=== PATIENT | female | born 1940 | race Caucasian/White ===

== ENCOUNTER → 2019-01-22 | Outpatient (CLI) | payer MEDICARE, OTHER | LOC: RAD 14:21 | DX: I08.1 Rheumatic disorders of both mitral and tricuspid valves (principal) ==

== ENCOUNTER 2020-06-18 09:01 | Inpatient (IN) | payer MEDICARE, OTHER ==
[~2020-06-18] VITALS: Ht 167.6 cm; Wt 50.0 kg
[2020-06-18] MEDS ORDERED: SUNMARK PAIN R325 MG PO (10:21)
[2020-06-18] MEDS ORDERED: ASPIRIN 32325 MG/TAB PO (10:22)
[2020-06-18] MEDS ORDERED: CARVEDILOL3.125 MG PO (10:23)
[2020-06-18] MEDS ORDERED: CEFDINIR300 MG PO (10:24)
[2020-06-18] MEDS ORDERED: CYCLOBENZAPRINE10 M1 PO (10:25)
[2020-06-18] MEDS ORDERED: LASIX40 M1 PO (10:31)
[2020-06-18] MEDS ORDERED: AIRDUO RESPICL1 EAC1 IH (10:31)
[2020-06-18] MEDS ORDERED: NORCO 325 MG-51 TA1 PO (10:33)
[2020-06-18] MEDS ORDERED: LEVOTHYROXINE0.05 MG PO (10:34)
[2020-06-18] MEDS ORDERED: OLMESARTAN MEDO20 MG PO (10:36)
[2020-06-18] MEDS ORDERED: BENGAY ULTRA STREN5% TP (10:36)
[2020-06-18] MEDS ORDERED: GUAIFEN-CODEINE10 ML PO (10:37)
[2020-06-18 12:33] LABS: MEAN CELL VOLUME 89 fl (78-100); MEAN CORPUSCULAR HEMOGLOBIN 28 pg (27-31); MEAN CORPUSCULAR HGB CONC 31 g/dL (33-37); MEAN PLATELET VOLUME 9.6 fl (7.4-10.4); PLATELET COUNT 299 K/mm3 (130-400); RED BLOOD COUNT 3.95 M/mm3 (4.10-5.30); RED CELL DISTRIBUTION WIDTH 13.6 % (11.5-14.5); WHITE BLOOD COUNT 12.9 K/mm3 (4.8-10.8)
[2020-06-18 12:41] LABS: BAND 2 % (0-10); LYMPHOCYTE 4 % (20-51); MONOCYTE 8 % (3-10); NEUTROPHILS 86 % (42-75)
[2020-06-18 12:42] LABS: ALBUMIN 3.2 g/dL (3.4-4.8); POTASSIUM 4.5 mmol/L (3.5-5.1)
[2020-06-18 12:44] LABS: CALCIUM 8.9 mg/dL (8.3-10.5)
[2020-06-18 12:45] LABS: TOTAL PROTEIN 7.3 g/dL (6.2-8.1)
[2020-06-18 12:47] LABS: TOTAL BILIRUBIN 0.5 mg/dL (0.2-1.2)
[2020-06-18 12:51] LABS: MAGNESIUM 1.61 mg/dL (1.60-2.60)
[2020-06-18 13:55] VITALS: BP 103/54
[2020-06-18 18:57] VITALS: BP 108/66
[2020-06-19] VITALS (7 sets, daily range): BP systolic 77–121; BP diastolic 52–76
[2020-06-19 06:54] LABS: URINE APPEARANCE HAZY; URINE BILIRUBIN NEGATIVE (NEGATIVE); URINE COLOR YELLOW; URINE GLUCOSE NEGATIVE (NEGATIVE); URINE KETONE NEGATIVE (NEGATIVE); URINE NITRATE NEGATIVE (NEGATIVE); URINE PROTEIN(semi-quant) TRACE mg/dL (NEGATIVE); URINE UROBILINOGEN NORMAL (NORMAL)
[2020-06-19 06:55] LABS: URINE BLOOD TRACE (NEGATIVE); URINE LEUKOCYTE ESTERASE TRACE (NEGATIVE); URINE MUCUS PRESENT (NOT PRESENT)
[2020-06-20] VITALS (31 sets, daily range): BP systolic 57–121; BP diastolic 28–63
[2020-06-20 09:21] LABS: HEMATOCRIT 30.6 % (37.0-47.0); HEMOGLOBIN 9.4 g/dL (12.5-16.0)
[2020-06-20 09:22] LABS: POTASSIUM 4.8 mmol/L (3.5-5.1)
[2020-06-20 09:36] LABS: TROPONIN-I 0.04 ng/mL (<0.030)
[2020-06-20 09:50] LABS: D-DIMER 4.65 mg/L FEU (0.15-0.50)
[2020-06-20 10:06] LABS: HEMATOCRIT 30.7 % (37.0-47.0); HEMOGLOBIN 9.4 g/dL (12.5-16.0); MEAN CELL VOLUME 90 fl (78-100); MEAN CORPUSCULAR HEMOGLOBIN 28 pg (27-31); MEAN CORPUSCULAR HGB CONC 31 g/dL (33-37); MEAN PLATELET VOLUME 10.3 fl (7.4-10.4); PLATELET COUNT 336 K/mm3 (130-400); RED CELL DISTRIBUTION WIDTH 13.9 % (11.5-14.5); WHITE BLOOD COUNT 9.2 K/mm3 (4.8-10.8)
[2020-06-20 10:13] LABS: BAND 1 % (0-10); LYMPHOCYTE 8 % (20-51); MONOCYTE 5 % (3-10); NEUTROPHILS 82 % (42-75)
[2020-06-21] VITALS (18 sets, daily range): BP systolic 78–136; BP diastolic 46–81
[2020-06-21 09:32] LABS: HEMATOCRIT 31.4 % (37.0-47.0); HEMOGLOBIN 9.6 g/dL (12.5-16.0); MEAN CELL VOLUME 91 fl (78-100); MEAN CORPUSCULAR HEMOGLOBIN 28 pg (27-31); MEAN CORPUSCULAR HGB CONC 31 g/dL (33-37); MEAN PLATELET VOLUME 9.5 fl (7.4-10.4); PLATELET COUNT 330 K/mm3 (130-400); RED BLOOD COUNT 3.46 M/mm3 (4.10-5.30); RED CELL DISTRIBUTION WIDTH 14.1 % (11.5-14.5); WHITE BLOOD COUNT 8.8 K/mm3 (4.8-10.8)
[2020-06-21 09:42] LABS: POTASSIUM 4.3 mmol/L (3.5-5.1)
[2020-06-21 09:43] LABS: CALCIUM 8.3 mg/dL (8.3-10.5)
[2020-06-21 10:41] LABS: LYMPHOCYTE 7 % (20-51); MONOCYTE 12 % (3-10); NEUTROPHILS 78 % (42-75)
[2020-06-22] VITALS (11 sets, daily range): BP systolic 106–157; BP diastolic 50–82
[2020-06-23 03:06] VITALS: BP 156/81
[2020-06-23 05:38] VITALS: BP 153/75
[2020-06-23 10:03] VITALS: BP 144/78
[2020-06-23 10:57] LABS: URINE APPEARANCE HAZY; URINE BILIRUBIN NEGATIVE (NEGATIVE); URINE BLOOD 250 ery/uL (NEGATIVE); URINE COLOR YELLOW; URINE GLUCOSE NEGATIVE (NEGATIVE); URINE KETONE NEGATIVE (NEGATIVE); URINE LEUKOCYTE ESTERASE NEGATIVE (NEGATIVE); URINE NITRATE NEGATIVE (NEGATIVE); URINE PROTEIN(semi-quant) TRACE mg/dL (NEGATIVE); URINE UROBILINOGEN NORMAL (NORMAL)
[2020-06-23 14:03] VITALS: BP 148/75
[2020-06-23 17:02] VITALS: BP 148/75
[2020-06-23 22:00] VITALS: BP 137/73
[2020-06-24 02:05] VITALS: BP 145/74
[2020-06-24 05:57] VITALS: BP 153/76
[2020-06-24 09:22] VITALS: BP 154/80
[2020-06-24 13:35] VITALS: BP 147/78
[2020-06-24 17:33] VITALS: BP 154/82
[2020-06-24 22:08] VITALS: BP 147/54
[2020-06-25] VITALS (7 sets, daily range): BP systolic 119–149; BP diastolic 73–78
[2020-06-26 06:20] VITALS: BP 135/72
[2020-06-26 14:00] VITALS: BP 120/71
[2020-06-26 21:54] VITALS: BP 113/68
[2020-06-27 06:11] VITALS: BP 129/79
[2020-06-27 14:20] VITALS: BP 107/59; BP 121/76
[2020-06-27 22:29] VITALS: BP 129/67
[2020-06-28 06:44] VITALS: BP 122/64
[2020-06-28 14:14] VITALS: BP 112/68
[2020-06-28 17:27] VITALS: BP 123/82
[2020-06-28 21:22] VITALS: BP 123/69
[2020-06-29 05:31] VITALS: BP 118/72
[2020-06-29 11:51] LABS: HEMATOCRIT 30.8 % (37.0-47.0); HEMOGLOBIN 9.3 g/dL (12.5-16.0); MEAN CELL VOLUME 94 fl (78-100); MEAN CORPUSCULAR HEMOGLOBIN 28 pg (27-31); MEAN CORPUSCULAR HGB CONC 30 g/dL (33-37); MEAN PLATELET VOLUME 8.7 fl (7.4-10.4); PLATELET COUNT 448 K/mm3 (130-400); RED BLOOD COUNT 3.28 M/mm3 (4.10-5.30); RED CELL DISTRIBUTION WIDTH 15.7 % (11.5-14.5); WHITE BLOOD COUNT 12.4 K/mm3 (4.8-10.8)
[2020-06-29 12:03] LABS: ALBUMIN 3.1 g/dL (3.4-4.8); POTASSIUM 4.6 mmol/L (3.5-5.1)
[2020-06-29 12:04] LABS: CALCIUM 8.3 mg/dL (8.3-10.5)
[2020-06-29 12:06] LABS: TOTAL PROTEIN 6.6 g/dL (6.2-8.1)
[2020-06-29 12:07] LABS: TOTAL BILIRUBIN 0.4 mg/dL (0.2-1.2)
[2020-06-29 12:22] LABS: LYMPHOCYTE 10 % (20-51); MONOCYTE 5 % (3-10); NEUTROPHILS 82 % (42-75)
[2020-06-29 14:25] VITALS: BP 111/69
[2020-06-29 18:05] VITALS: BP 112/64
[2020-06-30 06:22] VITALS: BP 132/66
[2020-06-30 15:21] VITALS: BP 102/68
[2020-06-30 17:54] VITALS: BP 121/77
[2020-06-30 22:05] VITALS: BP 102/60
[2020-07-01 00:23] LABS: URINE APPEARANCE HAZY; URINE BILIRUBIN NEGATIVE (NEGATIVE); URINE BLOOD 50 ery/uL (NEGATIVE); URINE COLOR YELLOW; URINE GLUCOSE NEGATIVE (NEGATIVE); URINE KETONE NEGATIVE (NEGATIVE); URINE LEUKOCYTE ESTERASE 2+ (NEGATIVE); URINE NITRATE POSITIVE (NEGATIVE); URINE PROTEIN(semi-quant) TRACE mg/dL (NEGATIVE); URINE UROBILINOGEN NORMAL (NORMAL); URINE WBC 16-30 /hpf (0-3)
[2020-07-01 05:50] VITALS: BP 119/56
[2020-07-01 14:05] VITALS: BP 115/69
[2020-07-01 22:00] VITALS: BP 117/68
[2020-07-02 02:00] VITALS: BP 144/69
[2020-07-02 13:44] VITALS: BP 116/65
[2020-07-02 22:34] VITALS: BP 146/72
[2020-07-03 06:11] VITALS: BP 147/72
[2020-07-03 13:57] VITALS: BP 119/68
[2020-07-03 22:28] VITALS: BP 118/59
[2020-07-04 05:40] VITALS: BP 130/63
[2020-07-04 13:49] VITALS: BP 122/46
[2020-07-05 05:36] VITALS: BP 128/73
[2020-07-05 17:41] VITALS: BP 134/69
[2020-07-05 17:42] VITALS: BP 134/69
[2020-07-06 05:29] VITALS: BP 133/61
[2020-07-06 17:38] VITALS: BP 130/68
[2020-07-07 05:10] VITALS: BP 122/64
[2020-07-07 18:01] VITALS: BP 143/69
[2020-07-08 06:36] VITALS: BP 129/62
[2020-07-08 17:22] VITALS: BP 130/88
[2020-07-09 05:44] VITALS: BP 121/69
[2020-07-09 17:42] VITALS: BP 118/64
[2020-07-10 06:06] VITALS: BP 126/65
[2020-07-10 17:50] VITALS: BP 118/63
[2020-07-11 05:39] VITALS: BP 133/68
[2020-07-11 18:00] VITALS: BP 133/60
[2020-07-12 06:09] VITALS: BP 160/74
[2020-07-12 06:37] LABS: BASO # 0.1 (0.02-0.10); EOS # 0.6 (0.04-0.40); EOS % 9.7 % (1.0-5.0); HEMATOCRIT 30.7 % (37.0-47.0); HEMOGLOBIN 9.1 g/dL (12.5-16.0); LYMPH# 1.1 (1.50-4.00); MEAN CELL VOLUME 97 fl (78-100); MEAN CORPUSCULAR HEMOGLOBIN 29 pg (27-31); MEAN CORPUSCULAR HGB CONC 30 g/dL (33-37); MEAN PLATELET VOLUME 8.7 fl (7.4-10.4); MONO # 0.6 (0.20-0.80); NEU # 3.5 (1.40-6.50); PLATELET COUNT 366 K/mm3 (130-400); RED BLOOD COUNT 3.18 M/mm3 (4.10-5.30); RED CELL DISTRIBUTION WIDTH 17.4 % (11.5-14.5); WHITE BLOOD COUNT 5.9 K/mm3 (4.8-10.8)
[2020-07-12 07:33] LABS: POTASSIUM 4.1 mmol/L (3.5-5.1)
[2020-07-12 07:35] LABS: CALCIUM 8.8 mg/dL (8.3-10.5)
[2020-07-12 10:51] LABS: PH-URINE 8.5 (5.0 - 8.0); URINE APPEARANCE CLEAR; URINE BILIRUBIN NEGATIVE (NEGATIVE); URINE BLOOD NEGATIVE (NEGATIVE); URINE COLOR YELLOW; URINE GLUCOSE NEGATIVE (NEGATIVE); URINE KETONE NEGATIVE (NEGATIVE); URINE LEUKOCYTE ESTERASE NEGATIVE (NEGATIVE); URINE MUCUS PRESENT (NOT PRESENT); URINE NITRATE NEGATIVE (NEGATIVE); URINE PROTEIN(semi-quant) TRACE mg/dL (NEGATIVE); URINE UROBILINOGEN NORMAL (NORMAL)
[2020-07-12 17:23] VITALS: BP 102/69
[2020-07-13 05:31] VITALS: BP 152/78
[2020-07-13 17:29] VITALS: BP 150/71
[2020-07-14 06:26] VITALS: BP 127/73
[2020-07-14] MEDS ORDERED: TRAMADOL 50 MG TAB PO (08:01)
[2020-07-14 11:49] VITALS: BP 139/65
== END 2020-07-14 12:42 | disposition home health service (06) | DRG 560 ==
LOC: MED/SURG 09:01
PROVIDERS: Family Medicine; Nurse Practitioner Family; Nurse Practitioner Primary Care; Physician Assistant; ADMIT Nurse Practitioner Family
DX: S72.452D Displaced supracondylar fracture without intracondylar extension of lower end of left femur, subsequent encounter for closed fracture with routine healing (principal); E87.1 Hypo-osmolality and hyponatremia; N39.0 Urinary tract infection, site not specified; B37.0 Candidal stomatitis; J44.9 Chronic obstructive pulmonary disease, unspecified; I50.9 Heart failure, unspecified; I95.9 Hypotension, unspecified; K59.00 Constipation, unspecified; N28.9 Disorder of kidney and ureter, unspecified; R09.02 Hypoxemia; R53.81 Other malaise; W19.XXXD Unspecified fall, subsequent encounter
CPT/HCPCS: J2543; J2930; J7030; J7040; J7120; Q9967